=== PATIENT | female | born 1975 | race African-American/Black ===

== ENCOUNTER 2018-02-12 10:24 | Observation (INO) ==
[2018-02-12 11:49] LABS: VBG Base Excess 0.2 mmol/L (-2-2); VBG Blood Gas Oxygen Content 13.4 Vol % (9.0-17.0); VBG PCO2 40 mmHG (44-48); VBG PO2 41 mmHG (35-40)
[2018-02-12 12:06] LABS: Baso % (Auto) 0.3 % (0.0-2.0); Eos # (Auto) 0.1 th/mm3 (0.0-0.4); Eos % (Auto) 0.9 % (0.0-4.0); Hematocrit 38.9 % (35.0-46.0); Hemoglobin 13.4 gm/dL (11.6-15.3); Lymph # (Auto) 2.6 th/mm3 (1.0-4.8); Lymph % (Auto) 26.9 % (9.0-44.0); Mean Corpuscular HGB Conc 34.4 % (32.0-36.0); Mean Corpuscular Hemoglobin 29.1 pg (27.0-34.0); Mean Corpuscular Volume 84.6 fL (80.0-100.0); Mean Platelet Volume 9.4 fL (7.0-11.0); Mono # (Auto) 0.5 th/mm3 (0.0-0.9); Mono % (Auto) 5.1 % (0.0-8.0); Neut # (Auto) 6.5 th/mm3 (1.8-7.7); Neut % (Auto) 66.8 % (16.0-70.0); Platelet Count 283 th/mm3 (150-450); Red Cell Distribution Width 13.2 % (11.6-17.2); White Blood Count 9.7 th/mm3 (4.0-11.0)
[2018-02-12 12:11] LABS: Bacteria,Urine Rare /hpf; Bilirubin,Urine Negative (Negative); Clarity,Urine Clear (Clear); Color,Urine Straw (Yellw/Straw); Glucose,Urine (UA) 500 or Greater mg/dL (Negative); Leukocyte Esterase,Urine Trace (Negative); Nitrite,Urine Negative (Negative); Specific Gravity,Urine 1.025 (1.002-1.035); Squamous Epithelial Cell,Urine 2 /hpf (0-5)
[2018-02-12 12:41] LABS: Anion Gap 9 meq/L (5-15); Blood Urea Nitrogen 8 mg/dL (7-18); Calcium 8.6 mg/dL (8.5-10.1); Carbon Dioxide 22.5 meq/L (21.0-32.0); Chloride 100 meq/L (98-107); Glomerular Filtration Rate Greater Than 89 mL/min (>89); Glucose,Random 328 mg/dL (74-106); Sodium 131 meq/L (136-145)
[2018-02-12 12:43] LABS: Potassium 4.4 meq/L (3.5-5.1)
[2018-02-12] MEDS ORDERED: Dextrose 50% in Water 50 ML Vial IV.PUSH PRN ×2 (13:10→19:23)
[2018-02-12] MEDS ORDERED: Sod Chloride 0.9% Inj 1,000 ML IV.SIG ONE (13:10)
--- NOTE | 2018-02-12 13:34 | ED ---
HPI General Chief complaint: Diabetic Stated complaint: High Glucose Time Seen by Provider: 02/12/18 12:44 Source: patient Mode of arrival: ambulatory Limitations: no limitations History of Present Illness HPI narrative: 38-year-old female with a new diagnosis of diabetes mellitus presents to the emergency evaluation of blurred vision, nausea, weakness, fatigue that started Thursday. Patient states she went to [facility] yesterday and was discharged, advised to follow-up with a primary care physician at the [facility]. Patient states she was discharged with metformin and has taken his medication however, she does not feel better. Patient states that the symptoms continue on. She has no previous history of these symptoms previously. Patient states that her blood sugar was 450 this morning. She has associated polydipsia and polyuria. She denies fever, chills , chest pain, shortness of breath, leg pain. Patient states she has had abdominal cramping, likely associated with multiple episodes of diarrhea. She says she has had 4-5 episodes of nonbloody diarrhea a day. Patient states she has a long family history of diabetes mellitus type 1 but states she has never had elevated blood sugar previously. Patient does not take any medication. She denies chronic medical problems except for occasional asthma. She has not used an albuterol inhaler in approximately 1 year because that she has not needed it. Radiation: non-radiation Severity: mild Related Data Home Medications Medication Instructions Recorded Confirmed metformin 500 mg PO BID 02/12/18 02/12/18 Allergies Allergy/AdvReac Type Severity Reaction Status Date / Time butorphanol [From Stadol] Allergy Nausea/Vomi Verified 02/12/18 11:23 ting morphine Allergy Nausea/Vomi Verified 02/12/18 11:23 ting Review of Systems ROS: all other systems reviewed are negative [facility] Medical History Medical History Diabetes (Acute) History of hysterectomy (Acute) Surgical History Surgical History History of cholecystectomy (Acute) Hx of breast reduction, elective (Acute) Social History Social History Substance History: No History of Abuse Smoking Status: Never smoker How Often Do You Have a Drink Containing Alcohol: Monthly or less Recent Travel in [facility] within the Last 8 Weeks: No Recent Out of Country Travel within the Last 8 Weeks: No Immunization History Tetanus Immunization: <5 Years Exam Narrative Exam Narrative: GENERAL: Well-developed, well-nourished, fatigued appearing SKIN: Focused skin assessment warm/dry. HEAD: Atraumatic. Normocephalic. EYES: Pupils equal and round. No scleral icterus. No injection or drainage. ENT: No nasal bleeding or discharge. Mucous membranes pink and moist. NECK: Trachea midline. No JVD. No lymphadenopathy CARDIOVASCULAR: Regular rate and rhythm. No murmur appreciated. RESPIRATORY: No accessory muscle use. Clear to auscultation. Breath sounds equal bilaterally. GASTROINTESTINAL: Abdomen soft, non-tender, nondistended. Hepatic and splenic margins not palpable. No CVA tenderness MUSCULOSKELETAL: No obvious deformities. No clubbing. No cyanosis. No edema. No tenderness palpation of the calves NEUROLOGICAL: Awake and alert. No obvious cranial nerve deficits. Motor grossly within normal limits. Normal speech. PSYCHIATRIC: Appropriate mood and affect; insight and judgment normal. Course Initial Documented Vital Signs Temperature 98.7 F 02/12/18 11:18 Pulse Rate 82 02/12/18 11:18 Respiratory Rate 18 02/12/18 11:18 Blood Pressure 189/96 H 02/12/18 11:18 Pulse Oximetry 95 02/12/18 11:18 Last Documented Vital Signs Temperature 98.7 F 02/12/18 11:18 Pulse Rate 96 H 02/12/18 15:21 Respiratory Rate 20 02/12/18 15:21 Blood Pressure 189/96 H 02/12/18 15:21 Pulse Oximetry 98 02/12/18 15:21 Medical Decision Making [facility] Narrative Medical decision making narrative: 42-year-old female presents to the emergency department as a newly diagnosed diabetic. Patient was diagnosed this week. She states [facility] she go to [facility] yesterday. Patient states she had a CT head which was normal. She was discharged home and advised to follow-up with [facility] which she did follow-up with yesterday. She says she woke up this morning continues to feel weak and decided to come in today for evaluation. Denies history of cardiac issues. Denies any medical issues except occasional asthma exacerbations which she has not had in 1 year. Labs reveal BGL 328, repeated at 254. Ordered 2L NS without improvement in symptoms. UA not overwhelmingly convincing of a UTI however, based off of weakness, will start on keflex. Multiple attempts to walk patient however, patient is unable to tolerate as she feels nauseous and weak. I attempted to discharge this patient with diflucan and macrobid but will recommend keflex. She states she feels nauseous and weak. An observation period is reasonable based off of H&P. I spoke with Dr. Ayres who agreed to the admission. Medical Screen Exam Complete: Yes Emergency Medical Condition: Yes Differential Diagnosis Differential Diagnosis: Diabetes complications, hyperglycemia, diabetic ketoacidosis Lab Data Result diagrams: 02/12/18 11:40 02/12/18 11:40 POC Results POC Urine Results Negative Lab Results 02/12/18 02/12/18 02/12/18 Range/Units 11:30 11:40 11:40 WBC 9.7 (4.0-11.0) th/mm3 RBC 4.60 (4.00-5.30) mil/mm3 Hgb 13.4 (11.6-15.3) gm/dL Hct 38.9 (35.0-46.0) % MCV 84.6 (80.0-100.0) fL MCH 29.1 (27.0-34.0) pg MCHC 34.4 (32.0-36.0) % RDW 13.2 (11.6-17.2) % Plt Count 283 (150-450) th/mm3 MPV 9.4 (7.0-11.0) fL Neut % (Auto) 66.8 (16.0-70.0) % Lymph % (Auto) 26.9 (9.0-44.0) % [place] % (Auto) 5.1 (0.0-8.0) % Eos % (Auto) 0.9 (0.0-4.0) % Baso % (Auto) 0.3 (0.0-2.0) % Neut # (Auto) 6.5 (1.8-7.7) th/mm3 Lymph # (Auto) 2.6 (1.0-4.8) th/mm3 [place] # (Auto) 0.5 (0.0-0.9) th/mm3 Eos # (Auto) 0.1 (0.0-0.4) th/mm3 Baso # (Auto) 0.0 (0.0-0.2) th/mm3 WBC Differential . Differential Comment Auto diff final Puncture Site Patient Temperature VBG pH (7.360-7.400) VBG pCO2 (44-48) mmHG VBG pO2 (35-40) mmHG VBG HCO3 (22-26) mmol/L VBG O2 Saturation (70-76) % VBG O2 Content (9.0-17.0) Vol % VBG Base Excess (-2-2) mmol/L VBG Carboxyhemoglobin (0-4) % VBG Methemoglobin (0-2) % Hemoglobin (12.0-16.0) G/DL O2 Delivery Device Liter Flow L/M Critical Value Sodium 131 L (136-145) meq/L Potassium 4.4 (3.5-5.1) meq/L Chloride 100 (98-107) meq/L Carbon Dioxide 22.5 (21.0-32.0) meq/L Anion Gap 9 (5-15) meq/L BUN 8 (7-18) mg/dL Creatinine 0.82 (0.50-1.00) mg/dL Estimated GFR Greater than 89 (>89) mL/min POC Glucose (68-110) mg/dl Random Glucose 328 H (74-106) mg/dL Calcium 8.6 (8.5-10.1) mg/dL Urine Color Straw (Yellw/Straw) Urine Clarity Clear (Clear) Urine pH 5.0 (5.0-8.5) Ur Specific [place] 1.025 (1.002-1.035) Urine Protein 30 H (Neg-Trace) mg/dL Urine Glucose (UA) 500 or greater (Negative) mg/dL Urine Ketones 80 or greater H (Negative) mg/dL Urine Occult Blood Negative (Negative) Urine Nitrate Negative (Negative) Urine Bilirubin Negative (Negative) Urine Urobilinogen Less than 2 (Less than 2) mg/dL Ur Leukocyte Esterase Trace H (Negative) Urine RBC 2 (0-3) /hpf Urine WBC 1 (0-5) /hpf Ur Squamous Epith Cells 2 (0-5) /hpf Urine Bacteria Rare H (None) /hpf Urine Yeast Rare H (None) /hpf Micro UA Comment Culture not ind Ur Microscopic Review Not Reportable Urine Culture Comments Culture not ind 02/12/18 02/12/18 Range/Units 11:40 13:56 WBC (4.0-11.0) th/mm3 RBC (4.00-5.30) mil/mm3 Hgb (11.6-15.3) gm/dL Hct (35.0-46.0) % MCV (80.0-100.0) fL MCH (27.0-34.0) pg MCHC (32.0-36.0) % RDW (11.6-17.2) % Plt Count (150-450) th/mm3 MPV (7.0-11.0) fL Neut % (Auto) (16.0-70.0) % Lymph % (Auto) (9.0-44.0) % [place] % (Auto) (0.0-8.0) % Eos % (Auto) (0.0-4.0) % Baso % (Auto) (0.0-2.0) % Neut # (Auto) (1.8-7.7) th/mm3 Lymph # (Auto) (1.0-4.8) th/mm3 [place] # (Auto) (0.0-0.9) th/mm3 Eos # (Auto) (0.0-0.4) th/mm3 Baso # (Auto) (0.0-0.2) th/mm3 WBC Differential Differential Comment Puncture Site Rac Patient Temperature 98.6 VBG pH 7.40 (7.360-7.400) VBG pCO2 40 L (44-48) mmHG VBG pO2 41 H (35-40) mmHG VBG HCO3 24 (22-26) mmol/L VBG O2 Saturation 71 (70-76) % VBG O2 Content 13.4 (9.0-17.0) Vol % VBG Base Excess 0.2 (-2-2) mmol/L VBG Carboxyhemoglobin 1.0 (0-4) % VBG Methemoglobin 0.6 (0-2) % Hemoglobin 13.4 (12.0-16.0) G/DL O2 Delivery Device Ra Liter Flow 21.00 L/M Critical Value No Sodium (136-145) meq/L Potassium (3.5-5.1) meq/L Chloride (98-107) meq/L Carbon Dioxide (21.0-32.0) meq/L Anion Gap (5-15) meq/L BUN (7-18) mg/dL Creatinine (0.50-1.00) mg/dL Estimated GFR (>89) mL/min POC Glucose 254 H (68-110) mg/dl Random Glucose (74-106) mg/dL Calcium (8.5-10.1) mg/dL Urine Color (Yellw/Straw) Urine Clarity (Clear) Urine pH (5.0-8.5) Ur Specific [place] (1.002-1.035) Urine Protein (Neg-Trace) mg/dL Urine Glucose (UA) (Negative) mg/dL Urine Ketones (Negative) mg/dL Urine Occult Blood (Negative) Urine Nitrate (Negative) Urine Bilirubin (Negative) Urine Urobilinogen (Less than 2) mg/dL Ur Leukocyte Esterase (Negative) Urine RBC (0-3) /hpf Urine WBC (0-5) /hpf Ur Squamous Epith Cells (0-5) /hpf Urine Bacteria (None) /hpf Urine Yeast (None) /hpf Micro UA Comment Ur Microscopic Review Urine Culture Comments Discharge Plan Discharge Disposition Patient Disposition: 30 Still Patient Discharge Condition Condition: Stable Discharge Details Diagnosis: UTI (urinary tract infection), Weakness Physicians Team ED Provider: [facility] ED Midlevel Provider: Peyton Yanes Primary Care Provider: [facility] Attending Provider: Nicky Ayers Status ED Status: Admitted Observation Patient
[2018-02-12] MEDS ORDERED: Sod Chloride 0.9% Inj 1,000 ML IV.SIG SCH (16:30)
[2018-02-12] MEDS ORDERED: Bisacodyl 10 MG Supp RECTAL PRN (18:45)
[2018-02-12] MEDS ORDERED: Acetaminophen 325 MG Tablet PO PRN (18:45)
--- NOTE | 2018-02-12 19:29 | P.HPIM ---
History of Present Illness Primary Care Physician: [facility] - History History Provided By: Patient - Medical History Medical History: Medical History (Last Reviewed 02/12/18 @ 13:32 by BAYLEE Cook) Diabetes History of hysterectomy - Surgical History Surgical History: Surgical History (Last Updated 02/12/18 @ 11:20 by Kimi Lopez) History of cholecystectomy Hx of breast reduction, elective - Tobacco History Smoking Status: Never smoker - Alcohol History How Often Do You Have a Drink Containing Alcohol: Monthly or less - Substance Use History Substance History: No History of Abuse - Travel History Recent Travel in the [place] Within the Last 8 Weeks: No Recent Travel Out of the Country Within the Last 8 Weeks: No - Immunization History Tetanus Immunization: <5 Years Medications and Allergies Active Medications: Active Medications Acetaminophen (Tylenol) 650 mg PO Q4H PRN PRN Reason: Headache, fever, pain 1-4 Al Hydroxide/Mg Hydroxide (Milk Of Magnesia Liq) 30 ml PO Q12H PRN PRN Reason: Mild Constipation Bisacodyl (Dulcolax Supp) 10 mg RECTAL DAILY PRN PRN Reason: SEVERE CONSITIPATION Dextrose (D50w Vial) 50 ml IV.PUSH UNSCH PRN PRN Reason: PER HYPOGLYCEMIA PROTOCOL Glucagon (Glucagon Inj) 1 mg OTHER UNSCH PRN PRN Reason: for Hypoglycemia Protocol Sodium Chloride (Ns Inj) 1,000 mls @ 100 mls/hr IV.CONT .Q10H ANAMARIA Insulin Aspart (Novolog Insulin Correctional Sugar Inj) 0 unit SQ ACHS ANAMARIA; Protocol Lactulose (Lactulose Liq) 30 ml PO DAILY PRN PRN Reason: SEVERE CONSITIPATION Ondansetron HCl (Zofran Inj) 4 mg IV.PUSH Q6H PRN PRN Reason: NAUSEA OR VOMITING Sennosides (Senokot) 17.2 mg PO Q12H PRN PRN Reason: Moderate Constipation Sodium Chloride (Ns Flush) 2 ml IV.FLUSH PRN PRN PRN Reason: FLUSH AFTER USING IV ACCESS Last Admin: 02/12/18 14:02 Dose: 2 ml Allergies Allergy/AdvReac Type Severity Reaction Status Date / Time butorphanol [From Stadol] Allergy Nausea/Vomi Verified 02/12/18 11:23 ting morphine Allergy Nausea/Vomi Verified 02/12/18 11:23 ting Home Medications Medication Instructions Recorded Confirmed Type metformin 500 mg PO BID 02/12/18 02/12/18 History Exam Vital signs: Vital Signs 02/12/18 11:18 02/12/18 13:10 02/12/18 15:21 Temperature 98.7 F Pulse Rate 82 79 96 H Respiratory Rate 18 20 Blood Pressure 189/96 H 189/96 H Pulse Oximetry 95 98 98 Intake & Output 02/12/18 02/12/18 02/13/18 06:59 18:59 06:59 Intake Total 1999 Balance 1999 Weight 110.223 kg Intake: IV 1999 NS Inj 1,000 ML @ Wide Open IV. 1999 SIG BOLUS ANAMARIA Rx#:[id number] Results - Labs CBC & Chem 7: 02/12/18 11:40 02/12/18 11:40 Labs: Short CBC 02/12/18 Range/Units 11:40 WBC 9.7 (4.0-11.0) th/mm3 Hgb 13.4 (11.6-15.3) gm/dL Hct 38.9 (35.0-46.0) % Plt Count 283 (150-450) th/mm3 BMP 02/12/18 11:40 Sodium 131 L Potassium 4.4 Chloride 100 Carbon Dioxide 22.5 BUN 8 Creatinine 0.82 Calcium 8.6 Urine 02/12/18 Range/Units 11:30 Urine Color Straw (Yellw/Straw) Urine Clarity Clear (Clear) Urine pH 5.0 (5.0-8.5) Ur Specific [place] 1.025 (1.002-1.035) Urine Protein 30 H (Neg-Trace) mg/dL Urine Glucose (UA) 500 or greater (Negative) mg/dL Caprini VTE Risk Assessment Caprini Risk Assessment Model: Point Value = 1 Point Value = 2 Point Value = 3 Point Value = 5 Age 41-60 Minor surgery BMI > 25 kg/m2 Swollen legs Varicose veins or History of unexplained or recurrent spontaneous Oral contraceptives or hormone replacement Sepsis (< 1 month) Serious lung disease, including pneumonia (< 1 month) Abnormal pulmonary function Acute myocardial infarction Congestive heart failure (< 1 month) History of inflammatory bowel disease Medical patient at bed rest Age 61-74 Arthroscopic surgery Major open surgery (> 45 min) Laparoscopic surgery (> 45 min) Malignancy Confined to bed (> 72 hours) Immobilizing plaster cast Central venous access Age >= 75 History of VTE Family history of VTE Factor V Leiden Prothrombin [id number] Lupus anticoagulant Anticardiolipin antibodies Elevated serum homocysteine Heparin-induced thrombocytopenia Other congenital or acquired thrombophilia Stroke (< 1 month) Elective arthroplasty Hip, pelvis, or leg fracture Acute spinal cord injury (< 1 month) Prophylaxis Regimen: Total Risk Factor Score Risk Level Prophylaxis Regimen 0-1 Low Early ambulation 2 Moderate Order ONE of the following: *Sequential Compression Device (SCD) *Heparin 5000 units SQ BID 3-4 Higher Order ONE of the following medications: *Heparin 5000 units SQ TID *Enoxaparin/Lovenox 40 mg SQ daily (WT < 150 kg, CrCl > 30 mL/min) *Enoxaparin/Lovenox 30 mg SQ daily (WT < 150 kg, CrCl > 10-29 mL/min) *Enoxaparin/Lovenox 30 mg SQ BID (WT < 150 kg, CrCl > 30 mL/min) AND/OR *Sequential Compression Device (SCD) 5 or more Highest Order ONE of the following medications: *Heparin 5000 units SQ TID (Preferred with Epidurals) *Enoxaparin/Lovenox 40 mg SQ daily (WT < 150 kg, CrCl > 30 mL/min) *Enoxaparin/Lovenox 30 mg SQ daily (WT < 150 kg, CrCl > 10-29 mL/min) *Enoxaparin/Lovenox 30 mg SQ BID (WT < 150 kg, CrCl > 30 mL/min) AND *Sequential Compression Device (SCD)
--- NOTE | 2018-02-12 21:31 | P.HPIM ---
History of Present Illness Service: [facility] Primary Care Physician: [facility] Chief Complaint: fatigue, blurred vision, polyuria History of Present Illness: 42 y/o female with a newly diagnosed history of DM presented to the ER with complaints of blurred vision, nausea, polyuria and fatigue that started on Thursday. She was seen at [facility] yesterday and diagnosed with DM and placed on metformin. She states her A1C there was 10.3. She was discharged and her symptoms and blood sugar did not resolve. She [facility] not [facility]. She does states last year her a1c was 5.7, but over the last year she has gained weight. Denies any chest pain, sob, fever or chills. Review of Systems All other systems reviewed negative except as [facility] - History History Provided By: Patient - Medical History Medical History: Medical History (Last Reviewed 02/12/18 @ 23:39 by LAURENT Tomlinson) Diabetes History of hysterectomy - Surgical History Surgical History: Surgical History (Last Reviewed 02/12/18 @ 23:39 by LAURENT Tomlinson) History of cholecystectomy Hx of breast reduction, elective - Family History Family History: Family History (Last Updated 02/12/18 @ 23:39 by LAURENT Tomlinson) Father Diabetes Mother Diabetes - Social History I have reviewed the patient's Social History: Yes - Tobacco History Second Hand Smoke Exposure: No Smoking Status: Never smoker - Alcohol History How Often Do You Have a Drink Containing Alcohol: Never - Substance Use History Substance History: No History of Abuse - Travel History Recent Travel in the [place] Within the Last 8 Weeks: No Recent Travel Out of the Country Within the Last 8 Weeks: No - Immunization History Tetanus Immunization: <5 Years Medications and Allergies Active Medications: Active Medications Acetaminophen (Tylenol) 650 mg PO Q4H PRN PRN Reason: Headache, fever, pain 1-4 Al Hydroxide/Mg Hydroxide (Milk Of Magnesia Liq) 30 ml PO Q12H PRN PRN Reason: Mild Constipation Bisacodyl (Dulcolax Supp) 10 mg RECTAL DAILY PRN PRN Reason: SEVERE CONSITIPATION Dextrose (D50w Vial) 50 ml IV.PUSH UNSCH PRN PRN Reason: PER HYPOGLYCEMIA PROTOCOL Glucagon (Glucagon Inj) 1 mg OTHER UNSCH PRN PRN Reason: for Hypoglycemia Protocol Sodium Chloride (Ns Inj) 1,000 mls @ 100 mls/hr IV.CONT .Q10H ANAMARIA Insulin Aspart (Novolog Insulin Correctional Sugar Inj) 0 unit SQ ACHS ANAMARIA; Protocol Lactulose (Lactulose Liq) 30 ml PO DAILY PRN PRN Reason: SEVERE CONSITIPATION Ondansetron HCl (Zofran Inj) 4 mg IV.PUSH Q6H PRN PRN Reason: NAUSEA OR VOMITING Sennosides (Senokot) 17.2 mg PO Q12H PRN PRN Reason: Moderate Constipation Sodium Chloride (Ns Flush) 2 ml IV.FLUSH PRN PRN PRN Reason: FLUSH AFTER USING IV ACCESS Last Admin: 02/12/18 14:02 Dose: 2 ml Allergies Allergy/AdvReac Type Severity Reaction Status Date / Time butorphanol [From Stadol] Allergy Nausea/Vomi Verified 02/12/18 11:23 ting morphine Allergy Nausea/Vomi Verified 02/12/18 11:23 ting Home Medications Medication Instructions Recorded Confirmed Type metformin 500 mg PO BID 02/12/18 02/12/18 History Exam Vital signs: Vital Signs 02/12/18 11:18 02/12/18 13:10 02/12/18 15:21 Temperature 98.7 F Pulse Rate 82 79 96 H Respiratory Rate 18 20 Blood Pressure 189/96 H 189/96 H Pulse Oximetry 95 98 98 02/12/18 21:29 Temperature 98.3 F Pulse Rate 77 Respiratory Rate 18 Blood Pressure 140/90 Pulse Oximetry 94 L Intake & Output 02/12/18 02/12/18 02/13/18 06:59 18:59 06:59 Intake Total 1999 Balance 1999 Weight 110.223 kg 110.223 kg Intake: IV 1999 NS Inj 1,000 ML @ Wide Open IV. 1999 SIG BOLUS ANAMARIA Rx#:[id number] Other: Weight On Admission 110.223 kg Narrative: GENERAL: This is a well-nourished, obese patient, in no apparent distress. CARDIOVASCULAR: Regular rate and rhythm without murmurs, gallops, or rubs. RESPIRATORY: Clear to auscultation. Breath sounds equal bilaterally. No wheezes , rales, or rhonchi. GASTROINTESTINAL: Abdomen soft, non-tender, nondistended. Normal active bowel sounds MUSCULOSKELETAL: Extremities without clubbing, cyanosis, or edema. NEURO: Alert & Oriented x4 to person, place, time, situation. Moves all ext x4 Results - Labs CBC & Chem 7: 02/12/18 11:40 02/12/18 11:40 Labs: Short CBC 02/12/18 Range/Units 11:40 WBC 9.7 (4.0-11.0) th/mm3 Hgb 13.4 (11.6-15.3) gm/dL Hct 38.9 (35.0-46.0) % Plt Count 283 (150-450) th/mm3 BMP 02/12/18 11:40 Sodium 131 L Potassium 4.4 Chloride 100 Carbon Dioxide 22.5 BUN 8 Creatinine 0.82 Calcium 8.6 Urine 02/12/18 Range/Units 11:30 Urine Color Straw (Yellw/Straw) Urine Clarity Clear (Clear) Urine pH 5.0 (5.0-8.5) Ur Specific [place] 1.025 (1.002-1.035) Urine Protein 30 H (Neg-Trace) mg/dL Urine Glucose (UA) 500 or greater (Negative) mg/dL Caprini VTE Risk Assessment Caprini VTE Risk Assessment: No/Low Risk (score <= 1) Caprini Risk Assessment Model: Point Value = 1 Point Value = 2 Point Value = 3 Point Value = 5 Age 41-60 Minor surgery BMI > 25 kg/m2 Swollen legs Varicose veins or History of unexplained or recurrent spontaneous Oral contraceptives or hormone replacement Sepsis (< 1 month) Serious lung disease, including pneumonia (< 1 month) Abnormal pulmonary function Acute myocardial infarction Congestive heart failure (< 1 month) History of inflammatory bowel disease Medical patient at bed rest Age 61-74 Arthroscopic surgery Major open surgery (> 45 min) Laparoscopic surgery (> 45 min) Malignancy Confined to bed (> 72 hours) Immobilizing plaster cast Central venous access Age >= 75 History of VTE Family history of VTE Factor V Leiden Prothrombin [id number] Lupus anticoagulant Anticardiolipin antibodies Elevated serum homocysteine Heparin-induced thrombocytopenia Other congenital or acquired thrombophilia Stroke (< 1 month) Elective arthroplasty Hip, pelvis, or leg fracture Acute spinal cord injury (< 1 month) Prophylaxis Regimen: Total Risk Factor Score Risk Level Prophylaxis Regimen 0-1 Low Early ambulation 2 Moderate Order ONE of the following: *Sequential Compression Device (SCD) *Heparin 5000 units SQ BID 3-4 Higher Order ONE of the following medications: *Heparin 5000 units SQ TID *Enoxaparin/Lovenox 40 mg SQ daily (WT < 150 kg, CrCl > 30 mL/min) *Enoxaparin/Lovenox 30 mg SQ daily (WT < 150 kg, CrCl > 10-29 mL/min) *Enoxaparin/Lovenox 30 mg SQ BID (WT < 150 kg, CrCl > 30 mL/min) AND/OR *Sequential Compression Device (SCD) 5 or more Highest Order ONE of the following medications: *Heparin 5000 units SQ TID (Preferred with Epidurals) *Enoxaparin/Lovenox 40 mg SQ daily (WT < 150 kg, CrCl > 30 mL/min) *Enoxaparin/Lovenox 30 mg SQ daily (WT < 150 kg, CrCl > 10-29 mL/min) *Enoxaparin/Lovenox 30 mg SQ BID (WT < 150 kg, CrCl > 30 mL/min) AND *Sequential Compression Device (SCD) Assessment and Plan - Plan Newly diagnosed DM -Cont PO Metformin, Start long acting Levemir 10 units HS -Accu checks with SSI -A1C ordered -Diet and exercise discussed, Patient will see a dietitian at the [facility] ordered, due to weight gain Mild UTI with urinary frequency Urine shows trace leukocyte esterase, rare bacteria, positive protein -Bactrim PO Q12 for 7 days -Culture not indicated DVT prophylaxis: SCDs Discussed Condition With: Patient and RN H&P: Quality - VTE Deep Vein Thrombosis/Pulmonary Embolism Present on Admission: No
[2018-02-12] MEDS: Insulin NovoLOG Aspart Correctional Sugar Inj SQ SCH (21:36)
[2018-02-12] MEDS: Sod Chloride 0.9% Inj 1,000 ML IV.CONT SCH (21:39)
[2018-02-12] MEDS ORDERED: Insulin Detemir Inj 1,000 UNIT/10 ML Vial SQ SCH (23:45)
[2018-02-13 05:27] LABS: Baso % (Auto) 0.4 % (0.0-2.0); Eos # (Auto) 0.2 th/mm3 (0.0-0.4); Eos % (Auto) 1.9 % (0.0-4.0); Hematocrit 38.8 % (35.0-46.0); Hemoglobin 12.6 gm/dL (11.6-15.3); Lymph # (Auto) 2.7 th/mm3 (1.0-4.8); Lymph % (Auto) 31.9 % (9.0-44.0); Mean Corpuscular HGB Conc 32.5 % (32.0-36.0); Mean Corpuscular Volume 86.1 fL (80.0-100.0); Mean Platelet Volume 8.9 fL (7.0-11.0); Mono # (Auto) 0.6 th/mm3 (0.0-0.9); Mono % (Auto) 6.6 % (0.0-8.0); Neut % (Auto) 59.2 % (16.0-70.0); Platelet Count 277 th/mm3 (150-450); Red Blood Count 4.51 mil/mm3 (4.00-5.30); Red Cell Distribution Width 13.1 % (11.6-17.2); White Blood Count 8.5 th/mm3 (4.0-11.0)
[2018-02-13 05:51] LABS: Alanine Aminotransferase 32 U/L (10-53); Albumin 2.8 g/dL (3.4-5.0); Anion Gap 7 meq/L (5-15); Aspartate Aminotransferase 28 U/L (15-37); Blood Urea Nitrogen 5 mg/dL (7-18); Calcium 8.1 mg/dL (8.5-10.1); Carbon Dioxide 26.7 meq/L (21.0-32.0); Chloride 104 meq/L (98-107); Glomerular Filtration Rate 83 mL/min (>89); Glucose,Random 304 mg/dL (74-106); Potassium 4.2 meq/L (3.5-5.1); Sodium 138 meq/L (136-145)
[2018-02-13 05:54] LABS: Alkaline Phosphatase 100 U/L (45-117); Total Protein 6.8 g/dL (6.4-8.2)
[2018-02-13] MEDS: Sod Chloride 0.9% Inj 1,000 ML IV.CONT SCH (06:08)
[2018-02-13] MEDS ORDERED: Sulfamethoxazole/Trimethoprim 400/80 MG Tablet PO SCH (09:00)
[2018-02-13] MEDS: Insulin NovoLOG Aspart Correctional Sugar Inj SQ SCH ×2 (09:04→13:09)
--- NOTE | 2018-02-13 09:49 | P.PNIM ---
Subjective Interval history: f/u; diabetes in no acute distress. says that she's feeling better but feeling weak. blood sugar trend noted. no other complaints. Physical Exam Vital signs: Vital Signs 02/12/18 11:18 02/12/18 13:10 02/12/18 15:21 Temperature 98.7 F Pulse Rate 82 79 96 H Respiratory Rate 18 20 Blood Pressure 189/96 H 189/96 H Pulse Oximetry 95 98 98 02/12/18 21:29 02/12/18 23:54 02/13/18 03:59 Temperature 98.3 F 98.2 F 98.3 F Pulse Rate 77 73 76 Respiratory Rate 18 18 18 Blood Pressure 140/90 127/79 120/60 Pulse Oximetry 94 L 96 95 02/13/18 07:18 Temperature 98.1 F Pulse Rate 70 Respiratory Rate 20 Blood Pressure 125/78 Pulse Oximetry 97 Intake & Output 02/12/18 02/13/18 02/13/18 18:59 06:59 18:59 Intake Total 1999 1000 / 1000 Balance 1999 1000 / 1000 Weight 110.223 kg 110.223 kg Intake: IV 1999 1000 / 1000 NS Inj 1,000 ML @ 100 mls/hr IV 1000 / 1000 .CONT .Q10H ANAMARIA Rx#:[id number] NS Inj 1,000 ML @ Wide Open IV. 1999 SIG BOLUS ANAMARIA Rx#:[id number] Other: Weight On Admission 110.223 kg - Constitutional no acute distress - Routine Respiratory Exam Present: CTA bilaterally - Routine Cardiovascular Exam Present: RRR - Routine Abdominal Exam Present: soft - Routine Extremities Exam Comments: no pedal edema. - Routine Neurological Exam Present: alert, oriented X3 Results - Labs CBC & Chem 7: 02/13/18 05:08 02/13/18 05:08 Laboratory Results - last 24 hr 02/12/18 02/12/18 02/12/18 11:30 11:40 11:40 WBC 9.7 RBC 4.60 Hgb 13.4 Hct 38.9 MCV 84.6 MCH 29.1 MCHC 34.4 RDW 13.2 Plt Count 283 MPV 9.4 Neut % (Auto) 66.8 Lymph % (Auto) 26.9 [place] % (Auto) 5.1 Eos % (Auto) 0.9 Baso % (Auto) 0.3 Neut # (Auto) 6.5 Lymph # (Auto) 2.6 [place] # (Auto) 0.5 Eos # (Auto) 0.1 Baso # (Auto) 0.0 WBC Differential . Differential Comment Auto diff final Puncture Site Patient Temperature VBG pH VBG pCO2 VBG pO2 VBG HCO3 VBG O2 Saturation VBG O2 Content VBG Base Excess VBG Carboxyhemoglobin VBG Methemoglobin Hemoglobin O2 Delivery Device Liter Flow Critical Value Sodium 131 L Potassium 4.4 Chloride 100 Carbon Dioxide 22.5 Anion Gap 9 BUN 8 Creatinine 0.82 Estimated GFR Greater than 89 POC Glucose Random Glucose 328 H Calcium 8.6 Total Bilirubin AST ALT Alkaline Phosphatase Total Protein Albumin TSH Urine Color Straw Urine Clarity Clear Urine pH 5.0 Ur Specific [place] 1.025 Urine Protein 30 H Urine Glucose (UA) 500 or greater Urine Ketones 80 or greater H Urine Occult Blood Negative Urine Nitrate Negative Urine Bilirubin Negative Urine Urobilinogen Less than 2 Ur Leukocyte Esterase Trace H Urine RBC 2 Urine WBC 1 Ur Squamous Epith Cells 2 Urine Bacteria Rare H Urine Yeast Rare H Micro UA Comment Culture not ind Ur Microscopic Review Not Reportable Urine Culture Comments Culture not ind 02/12/18 02/12/18 02/12/18 11:40 11:40 13:56 WBC RBC Hgb Hct MCV MCH MCHC RDW Plt Count MPV Neut % (Auto) Lymph % (Auto) [place] % (Auto) Eos % (Auto) Baso % (Auto) Neut # (Auto) Lymph # (Auto) [place] # (Auto) Eos # (Auto) Baso # (Auto) WBC Differential Differential Comment Puncture Site Rac Patient Temperature 98.6 VBG pH 7.40 VBG pCO2 40 L VBG pO2 41 H VBG HCO3 24 VBG O2 Saturation 71 VBG O2 Content 13.4 VBG Base Excess 0.2 VBG Carboxyhemoglobin 1.0 VBG Methemoglobin 0.6 Hemoglobin 13.4 O2 Delivery Device Ra Liter Flow 21.00 Critical Value No Sodium Potassium Chloride Carbon Dioxide Anion Gap BUN Creatinine Estimated GFR POC Glucose 254 H Random Glucose Calcium Total Bilirubin AST ALT Alkaline Phosphatase Total Protein Albumin TSH 1.600 Urine Color Urine Clarity Urine pH Ur Specific [place] Urine Protein Urine Glucose (UA) Urine Ketones Urine Occult Blood Urine Nitrate Urine Bilirubin Urine Urobilinogen Ur Leukocyte Esterase Urine RBC Urine WBC Ur Squamous Epith Cells Urine Bacteria Urine Yeast Micro UA Comment Ur Microscopic Review Urine Culture Comments 02/12/18 02/13/18 02/13/18 21:32 05:08 05:08 WBC 8.5 RBC 4.51 Hgb 12.6 Hct 38.8 MCV 86.1 MCH 28.0 MCHC 32.5 RDW 13.1 Plt Count 277 MPV 8.9 Neut % (Auto) 59.2 Lymph % (Auto) 31.9 [place] % (Auto) 6.6 Eos % (Auto) 1.9 Baso % (Auto) 0.4 Neut # (Auto) 5.0 Lymph # (Auto) 2.7 [place] # (Auto) 0.6 Eos # (Auto) 0.2 Baso # (Auto) 0.0 WBC Differential . Differential Comment Auto diff final Puncture Site Patient Temperature VBG pH VBG pCO2 VBG pO2 VBG HCO3 VBG O2 Saturation VBG O2 Content VBG Base Excess VBG Carboxyhemoglobin VBG Methemoglobin Hemoglobin O2 Delivery Device Liter Flow Critical Value Sodium 138 Potassium 4.2 Chloride 104 Carbon Dioxide 26.7 Anion Gap 7 BUN 5 L Creatinine 0.89 Estimated GFR 83 L POC Glucose 259 H Random Glucose 304 H Calcium 8.1 L Total Bilirubin 0.4 AST 28 ALT 32 Alkaline Phosphatase 100 Total Protein 6.8 Albumin 2.8 L TSH Urine Color Urine Clarity Urine pH Ur Specific [place] Urine Protein Urine Glucose (UA) Urine Ketones Urine Occult Blood Urine Nitrate Urine Bilirubin Urine Urobilinogen Ur Leukocyte Esterase Urine RBC Urine WBC Ur Squamous Epith Cells Urine Bacteria Urine Yeast Micro UA Comment Ur Microscopic Review Urine Culture Comments 02/13/18 09:03 WBC RBC Hgb Hct MCV MCH MCHC RDW Plt Count MPV Neut % (Auto) Lymph % (Auto) [place] % (Auto) Eos % (Auto) Baso % (Auto) Neut # (Auto) Lymph # (Auto) [place] # (Auto) Eos # (Auto) Baso # (Auto) WBC Differential Differential Comment Puncture Site Patient Temperature VBG pH VBG pCO2 VBG pO2 VBG HCO3 VBG O2 Saturation VBG O2 Content VBG Base Excess VBG Carboxyhemoglobin VBG Methemoglobin Hemoglobin O2 Delivery Device Liter Flow Critical Value Sodium Potassium Chloride Carbon Dioxide Anion Gap BUN Creatinine Estimated GFR POC Glucose 281 H Random Glucose Calcium Total Bilirubin AST ALT Alkaline Phosphatase Total Protein Albumin TSH Urine Color Urine Clarity Urine pH Ur Specific [place] Urine Protein Urine Glucose (UA) Urine Ketones Urine Occult Blood Urine Nitrate Urine Bilirubin Urine Urobilinogen Ur Leukocyte Esterase Urine RBC Urine WBC Ur Squamous Epith Cells Urine Bacteria Urine Yeast Micro UA Comment Ur Microscopic Review Urine Culture Comments Assessment and Plan - Plan Newly diagnosed DM -Cont PO Metformin, Started long acting Levemir 10 units HS -Accu checks with SSI -A1C pending. -Diet and exercise discussed, Patient will see a dietitian at the [place] consult PT. DVT prophylaxis: SCDs Discharge Planning: dc home later today if stable and ok with PT.
[2018-02-13 12:52] LABS: Hemoglobin A1c 10.9 % (4.3-6.0)
--- NOTE | 2018-02-13 12:56 | ECG ---
Date Performed: 02/12/2018 Time Performed: 14:29:50 PTAGE: 42 years EKG: Sinus rhythm NORMAL ECG Since PREVIOUS TRACING , no significant change noted PREVIOUS TRACIN06/19/2011 17.56 DOCTOR: Efra Hand Interpretating Date/Time 02/13/2018 12:54:40
== END 2018-02-13 14:20 | disposition home or self-care (01) ==
LOC: NEDA 10:24 → NEPE 10:24 → NEPFCDU 19:57
PROVIDERS: ADMIT Internal Medicine; ATTEND Internal Medicine